=== PATIENT | female | born 1950 | race Caucasian/White ===

== ENCOUNTER 2017-07-02 12:41 | Outpatient (CLI) | payer MEDICARE, BC ==
[2017-07-02 13:26] LABS: Anion Gap 13 mmol/L (10-20); BUN (Urea Nitrogen) 21 mg/dL (9.8-20.1); Calc. Creatinine Clearance 0 mL/min (70-130); Calcium 9.4 mg/dL (7.8-10.44); Carbon Dioxide 24 mmol/L (23-31); Chloride 105 mmol/L (98-107); Estimated GFR-MDRD 67
--- NOTE | 2017-07-02 16:56 | NM ---
LASIX RENOGRAM 07/02/17 HISTORY: Hydronephrosis. Recurrent urinary tract infections. Congenital UPJ obstruction. Urge incontinence. RADIOPHARMACEUTICAL: 7.5 millicuries technetium 99m labeled MAG3, IV. MEDICATIONS: 33.1 mg of Lasix, intravenously administered 15 minutes prior to imaging. FINDINGS: Sequential posterior images of the bilateral kidneys is performed. There is a normal time activity c urve involving the left kidney with prompt uptake of radiotracer within the right kidney but delayed washout. Split renal function is 47.2% on the left and 52.8% on the right. The time to half max act ivity on the left is 6.1 minutes and on the right is 16.3 minutes. On the static images, there is in creased uptake of radiotracer predominantly within the left renal pelvis after approximately 50 yarelis ruthie of imaging. IMPRESSION: 1. Normal function and time activity curve involving the left kidney without hydronephrosis. 2. No complete obstruction involving the right kidney. While there is normal uptake, there is d elayed excretion of the radiotracer with prominent activity in the region of the right renal pelvis noted on the delayed images. On CT exam of 04/28/17, there wa a prominent extrarenal pelvis with only mild caliceal dilatation present. Extrarenal pelvis was also present on the left on that exam. 3. Split renal function is 47.2% on the left and 52.8% on the right. POS: [facility]
[2017-07-02] MEDS ORDERED: Furosemide 40 MG/4 ML VIAL ONE (17:14)
== END 2017-07-02 12:42 | disposition home or self-care (01) ==
LOC: NM 12:41
PROVIDERS: ATTEND Urology
DX: N39.0 Urinary tract infection, site not specified (principal); Q62.11 Congenital occlusion of ureteropelvic junction; N39.41 Urge incontinence; R31.29 Other microscopic hematuria
CPT/HCPCS: 78708; 80048; A4641; A9562; 36415; J1940

== ENCOUNTER 2017-07-12 08:58 | Outpatient (CLI) | payer MEDICARE, BC ==
--- NOTE | 2017-07-12 11:52 | RAD ---
VOIDING CYSTOURETHROGRAM: Date: 07/12/17 HISTORY: N39.0, recurrent UTI. Q62.11, UPJ obstruction, congenital. COMPARISON: Nuclear medicine scan dated 07/02/17, as well as CT abdomen/pelvis dated 04/28/17. FINDINGS: The patient was brought to the fluoroscopy suite. All questions were answered. Fund Accountant radiograph of the pelvis demonstrates mild levoscoliosis. Phleboliths in the pelvis. Bladder was catheterized. Retrograde 500 mL of contrast was instilled into the urinary bladder withou t complication. There is no reflux. There is a moderate post-void residual. IMPRESSION: 1. No evidence for reflux. 2. Moderate post-void residual. Fluoro Time: 0.7 minutes. Dose: 11.3 mGy*cm^2. POS: [facility]
[2017-07-12] MEDS ORDERED: ISOVUE-370 76%-LOCM 1 ML ONE (13:52)
== END 2017-07-12 08:59 | disposition home or self-care (01) ==
LOC: RAD 08:58
PROVIDERS: ATTEND Urology
DX: N39.41 Urge incontinence (principal); N39.0 Urinary tract infection, site not specified; N39.43 Post-void dribbling; Q62.11 Congenital occlusion of ureteropelvic junction
CPT/HCPCS: 51600; 74455

== ENCOUNTER 2017-08-03 09:09 | Outpatient (CLI) | payer MEDICARE, BC ==
[2017-08-03 09:43] LABS: Anion Gap 10 mmol/L (10-20); BUN (Urea Nitrogen) 19 mg/dL (9.8-20.1); Calc. Creatinine Clearance 0 mL/min (70-130); Calcium 9.3 mg/dL (7.8-10.44); Carbon Dioxide 29 mmol/L (23-31); Chloride 105 mmol/L (98-107); Estimated GFR-MDRD 65
--- NOTE | 2017-08-03 11:54 | CT ---
CTA OF THE ABDOMEN UTILIZING IV CONTRAST AND 3D REFORMATTED IMAGING: INDICATIONS: Right UPJ obstruction. COMPARISON: Prior CT of the abdomen and pelvis dated 04/28/2017. FINDINGS: The renal pelviectasis involving the right kidney is not as prominent as seen on the comparison CT. There is an extrarenal pelvis involving the left kidney. There is transition to a normal caliber pro ximal right ureter at the right UPJ without evidence of any crossing arterialized vessels. There is some mild vascular calcification seen adjacent to the celiac origin. The SMA is widely stroud nt. There are single renal arteries bilaterally that are widely patent. The alignment is widely pat ent. No aneurysmal dilatation is seen involving the abdominal aorta. The lung bases are clear. No arterial enhancing lesion is seen within the liver. There is some intrahepatic and extrahepatic b iliary ductal dilatation, likely related to post cholecystectomy state. The pancreas is within fermin l limits. The adrenal glands appear within normal limits. The spleen appears within normal limits o n this phase of contrast enhancement. No acute osseous abnormality is evident. IMPRESSION: 1. No visible crossing vessels seen near the ureteropelvic junction. Transition of the right kidney suggests extrinsic mass effect on the ureteropelvic junction, inducing ureteropelvic junction obstru ction. 2. There is an extra renal pelvis on the left. 3. The right renal pelvis also appears to be an extra renal pelvis. 4. There is no berto calyceal dilatation. The extent of the dilatation involving both renal collect ing systems, particularly on the right, on the comparison (04/28/2017) exam has improved. There was some slight obstructive physiology seen involving the right renal collecting system, on the compariso n nuclear renogram examination, likely reflecting at least mild presence of ureteropelvic junction ob struction on the right. 5. No hemodynamically significant stenosis or aneurysmal formation or dissection demonstrated. 6. Cholecystectomy. POS: [facility]
[2017-08-03] MEDS ORDERED: Iopamidol 370 76% 100 ML VIAL ONE (13:10)
== END 2017-08-03 09:10 | disposition home or self-care (01) ==
LOC: CT 09:09
PROVIDERS: ATTEND Urology
DX: Q62.11 Congenital occlusion of ureteropelvic junction (principal); Z90.49 Acquired absence of other specified parts of digestive tract
CPT/HCPCS: 36415; 74175; 80048

== ENCOUNTER 2017-11-16 08:43 | Outpatient (CLI) | payer MEDICARE, BC | END 2017-11-16 08:44 | disposition home or self-care (01) | LOC: BICMAMMO 08:43 | PROVIDERS: ATTEND Obstetrics & Gynecology | DX: Z12.31 Encounter for screening mammogram for malignant neoplasm of breast (principal); Z80.3 Family history of malignant neoplasm of breast | CPT/HCPCS: 77063; 77067 ==

== ENCOUNTER 2018-02-15 12:20 | Outpatient (CLI) | payer MEDICARE, BC ==
[2018-02-15] MEDS ORDERED: Furosemide 40 MG/4 ML VIAL ONE (14:50)
--- NOTE | 2018-02-16 10:30 | NM ---
LASIX RENOGRAM: DATE: 02/15/18. HISTORY: Congenital occlusion of ureteropelvic junction. COMPARISON: 07/02/17. RADIOPHARMACEUTICAL: 8.2 mCi Technetium 99m MAG-3, IV. MEDICATIONS: 34 mg of Lasix, IV, prior to scanning. COMPARISON: 07/02/17. FINDINGS: Sequential posterior imaging of the bilateral kidneys is performed. Again noted is a normal time act ivity curve involving the left kidney with prompt uptake and excretion of radiotracer. Thee is also prompt uptake of radiotracer by the right kidney with mild delay in washout compared to the left kidn ey. Time activity curves are similar to the prior exam. Again noted is prominent renal pelvis on th e right compared to the left on the washout images. Activity is seen within each ureter on the washo ut images. The split renal function on the left is 49.9% and on the right is 50.1%. The time of half-max activi ty on the left is 7.078 minutes and on the right is 14.2 minutes with time to max activity on the lef t of 2.1 minutes and on the right of 2.35 minutes. IMPRESSION: 1. Normal function and time activity curve involving the left kidney without evidence of hydronephro sis. 2. No evidence of obstruction on the right. Time activity curve is unchanged compared to the study on 07/02/17 with prominent activity in the region of the right renal pelvis noted on delayed images. As mentioned on the prior study, there is prominent extrarenal pelvis on the right noted on prior CT scan examination on 08/03/17. 3. Split renal function is 49.9% on the left and 50.1% on the right. POS: [facility]
== END 2018-02-15 12:21 | disposition home or self-care (01) ==
LOC: NM 12:20
PROVIDERS: ATTEND Urology
DX: Q62.11 Congenital occlusion of ureteropelvic junction (principal)
CPT/HCPCS: 78708; A4641; A9562; J1940

== ENCOUNTER 2018-11-21 10:29 | Outpatient (CLI) | payer MEDICARE, BC ==
--- NOTE | 2018-11-23 11:11 | MMO ---
Bilateral MAMMO Bilat Screen [facility]. CLINICAL HISTORY: Patient is 68 years old and is seen for screening. The patient has the following family history of breast cancer: maternal aunt, 70 and 75 years and maternal aunt, 70 and 75 years. The patient has no personal history of cancer. The patient has a history of right Excisional Biopsy in 1995 - Benign. VIEWS: The views performed were: bilateral craniocaudal with tomosynthesis and bilateral mediolateral oblique with tomosynthesis. FILMS COMPARED: The present examination has been compared to prior imaging studies performed at [facility] on 12/25/1996, 12/17/1997, 07/25/2002, 07/26/2003, 07/28/2004, 08/01/2004, 08/07/2005, 08/09/2006, 09/22/2007, 12/05/2008, 04/30/2010, 05/19/2011, 06/07/2012, 07/14/2013, 09/26/2014, 10/31/2015, 11/12/2016 and 11/16/2017. MAMMOGRAM FINDINGS: The breasts are heterogeneously dense, which could obscure a lesion on mammography. There are no suspicious masses, suspicious calcifications, or new areas of architectural distortion. IMPRESSION: THERE IS NO MAMMOGRAPHIC EVIDENCE OF MALIGNANCY. A ROUTINE FOLLOW-UP MAMMOGRAM IN 1 YEAR IS RECOMMENDED. THE RESULTS OF THIS EXAM WERE SENT TO THE PATIENT. ACR BI-RADS Category 1 - Negative MAMMOGRAPHY NOTE: 1. A negative mammogram report should not delay a biopsy if a dominant of clinically suspicious mass is present. 2. Approximately 10% to 15% of breast cancers are not detected by mammography. 3. Adenosis and dense breasts may obscure an underlying neoplasm.
== END 2018-11-21 10:30 | disposition home or self-care (01) ==
LOC: BICMAMMO 10:29
PROVIDERS: ATTEND Obstetrics & Gynecology
DX: Z12.31 Encounter for screening mammogram for malignant neoplasm of breast (principal); Z80.3 Family history of malignant neoplasm of breast
CPT/HCPCS: 77063; 77067

== ENCOUNTER 2019-08-25 13:23 | Outpatient (CLI) | payer MEDICARE, BC ==
[2019-08-25] MEDS ORDERED: Furosemide 40 MG/4 ML VIAL ONE (15:01)
--- NOTE | 2019-08-25 16:36 | NM ---
RADIONUCLIDE DIURETIC RENOGRAPHY: 08/25/19 HISTORY: Congenital occlusion of ureteropelvic junction. History of UTIs. RADIOPHARMACEUTICAL: 8.7 millicuries technetium 99mm-MAG3 intravenously. DIURETIC: 33 mg IV Lasix administered 15 minutes prior to the injection of the radiopharmaceutical. Juarez rohan ter was in place during imaging. COMPARISON: 02/15/18. FINDINGS: There is good flow to both kidneys and normal tracer uptake by the kidneys on either side. There is n ormal tracer excretion by the kidneys into the ureters and urinary bladder. Downsloping renogram curv es are present. There is mild retention of tracer material in the right renal pelvis compared to the left on the lateral images. The differential function measures 54% on the right and 46% on the left. IMPRESSION: No evidence of high grade obstruction. POS: [facility]
== END 2019-08-25 13:24 | disposition home or self-care (01) ==
LOC: NM 13:23
PROVIDERS: ATTEND Urology
DX: Q62.11 Congenital occlusion of ureteropelvic junction (principal)
CPT/HCPCS: 78708; 80048; 81001; 87077; 87086; 87186; A4641; A9562; 36415; J1940

== ENCOUNTER 2020-01-04 09:47 | Outpatient (CLI) | payer MEDICARE, BC ==
--- NOTE | 2020-01-04 10:27 | MMO ---
Bilateral MAMMO Bilat Screen [facility]. CLINICAL HISTORY: Patient is 69 years old and is seen for screening. The patient has the following family history of breast cancer: maternal aunt, 70 and 75 years and maternal aunt, 70 and 75 years. The patient has no personal history of cancer. The patient has a history of right Excisional Biopsy in 1995 - Benign. VIEWS: The views performed were: bilateral craniocaudal with tomosynthesis and bilateral mediolateral oblique with tomosynthesis. FILMS COMPARED: The present examination has been compared to prior imaging studies performed at [facility] on 11/12/2016, 11/16/2017 and 11/21/2018. This study has been interpreted with the assistance of computer-aided detection. MAMMOGRAM FINDINGS: The breasts are heterogeneously dense, which could obscure a lesion on mammography. There are stable benign appearing calcifications seen in both breasts. There are also vascular calcifications. There are no suspicious masses, suspicious calcifications, or new areas of architectural distortion. IMPRESSION: THERE IS NO MAMMOGRAPHIC EVIDENCE OF MALIGNANCY. A ROUTINE FOLLOW-UP MAMMOGRAM IN 1 YEAR IS RECOMMENDED. THE RESULTS OF THIS EXAM WERE SENT TO THE PATIENT. ACR BI-RADS Category 2 - Benign finding MAMMOGRAPHY NOTE: 1. A negative mammogram report should not delay a biopsy if a dominant of clinically suspicious mass is present. 2. Approximately 10% to 15% of breast cancers are not detected by mammography. 3. Adenosis and dense breasts may obscure an underlying neoplasm. Reported by: PUJA RICHMOND MD Electonically Signed: [id number]
== END 2020-01-04 09:48 | disposition home or self-care (01) ==
LOC: BICMAMMO 09:47
PROVIDERS: ATTEND Obstetrics & Gynecology
DX: Z12.31 Encounter for screening mammogram for malignant neoplasm of breast (principal); Z80.3 Family history of malignant neoplasm of breast; Z91.89 Other specified personal risk factors, not elsewhere classified
CPT/HCPCS: 77063; 77067

== ENCOUNTER 2020-09-25 14:33 | Outpatient (CLI) | payer MEDICARE, BC ==
--- NOTE | 2020-09-26 16:47 | MRI ---
MRI OF LEFT KNEE PERFORMED WITOUT CONTRAST ENHANCEMENT: Comparison: 08-23-2002 History: Medial knee pain and stiffness FINDINGS: The ACL graft is intact. There is some mucoid degeneration to the PCL which is intact. The lateral meniscus is normal in shape and appearance. There is a tear involving the posterior horn and body region of the medial meniscus. This begins as more of a free edge, with more regularly orien florin tear in the posterior horn. It has a horizontal component extending into the body region and in a ddition, the free edge of the body of the meniscus is truncated. There is minimal medial subluxation. Medial collateral ligament is thickened related to an old injury. The lateral collateral ligament is normal in appearance. Iliotibial band region is unremarkable. Patellar articular cartilage shows some articular cartilage thinning of the medial facet. The medial and lateral patellar retinaculum and quadriceps and patellar tendons are unremarkable given the post- op changes. IMPRESSION: 1. Posterior horn and body medial meniscal tear as described above. 2. Intact ACL graft. 3. Some articular cartilage loss in the medial facet of the patellar and also some articular cartilag e loss along the more inferior margin of the trochanteric groove. POS: [facility]
== END 2020-09-25 14:34 | disposition home or self-care (01) ==
LOC: BICMRI 14:33
PROVIDERS: ATTEND Orthopaedic Surgery
DX: S83.242A Other tear of medial meniscus, current injury, left knee, initial encounter (principal); M17.12 Unilateral primary osteoarthritis, left knee; M23.92 Unspecified internal derangement of left knee

== ENCOUNTER 2020-10-25 10:19 | Outpatient (CLI) | payer MEDICARE, BC ==
[2020-10-25 12:21] LABS: #Eosinphils 0.1 10x3/uL (0.0-0.5); #Monocytes 0.5 10x3/uL (0.0-1.1); #Neutrophils 2.4 10x3/uL (1.5-8.4); %Basophils 0.7 % (0.0-2.0); %Eosinophils 2.3 % (0.0-6.0); %Lymphocytes 31.8 % (18.0-47.0); %Monocytes 10.8 % (0.0-10.0); %Neutrophils 54.2 % (40.0-75.0); Hemoglobin 13.5 g/dL (12.0-15.5); Mean Corpuscular HGB CONC 31.9 g/dL (32.0-36.0); Mean Corpuscular Hemoglobin 27.2 pg (27.0-33.0); Mean Corpuscular Volume 85.3 fl (81.6-98.3); Mean Platelet Volume 9.6 fl (7.4-10.4); Platelet Count 242 10x3/uL (150-450); Red Blood Cell (RBC) Count 4.96 10x6/uL (3.90-5.03); White Blood Cell (WBC) Count 4.4 10x3/uL (3.5-10.5)
[2020-10-25 12:37] LABS: Anion Gap 12 mmol/L (10-20); BUN (Urea Nitrogen) 17 mg/dL (9.8-20.1); Calc. Creatinine Clearance 0 mL/min (70-130); Calcium 9.8 mg/dL (7.8-10.44); Carbon Dioxide 30 mmol/L (23-31); Chloride 102 mmol/L (98-107); Glucose 95 mg/dL (83-110); Potassium 4.7 mmol/L (3.5-5.1); Sodium 139 mmol/L (136-145)
[2020-10-25 21:53] LABS: SARS-CoV-2 PCR by NAA Not Detected (NotDetected)
== END 2020-10-25 10:20 | disposition home or self-care (01) ==
LOC: LABBT 10:19
PROVIDERS: ATTEND Orthopaedic Surgery
DX: Z01.818 Encounter for other preprocedural examination (principal); Z20.822 Contact with and (suspected) exposure to COVID-19
CPT/HCPCS: 80048; 85025; 93005; U0003; U0005; 87635; 93010

== ENCOUNTER 2020-10-30 08:41 | Day surgery (SDC) | payer MEDICARE, BC ==
[2020-10-29 08:52] VITALS: BMI 26.2
[2020-10-30] MEDS ORDERED: PROPOFOL 200 MG/20 ML VIAL ONE (09:04)
[2020-10-30] MEDS ORDERED: Ketorolac Tromethamine 30 MG/ML VIAL ONE (09:04)
[2020-10-30] MEDS ORDERED: Ondansetron PF 4 MG/2 ML Vial ONE (09:04)
[2020-10-30] MEDS ORDERED: Lidocaine 2% w/Epinephrine 1:200K 20 ML VIAL ONE (09:04)
[2020-10-30] MEDS ORDERED: Dexamethasone 20 MG/5 ML VIAL ONE (09:04)
[2020-10-30] MEDS ORDERED: Lidocaine 1% PF 5 ML VIAL ONE (09:04)
[2020-10-30] MEDS ORDERED: Bupivacaine HCl 0.5%/Epinephrine 1:200,000/PF 30 ml Vial ONE (09:04)
[2020-10-30] MEDS ORDERED: PROPOFOL 20 ML ONE (09:57)
[2020-10-30] MEDS ORDERED: Fentanyl 100 MCG/2 ML VIAL ONE (10:50)
== END 2020-10-30 14:00 | disposition home or self-care (01) ==
LOC: SDC 08:41
PROVIDERS: ATTEND Orthopaedic Surgery
PROC: 0SBD4ZZ Excision of Left Knee Joint, Percutaneous Endoscopic Approach (ICD-10-PCS; principal; 2020-10-30)
DX: M23.222 Derangement of posterior horn of medial meniscus due to old tear or injury, left knee (principal); M94.262 Chondromalacia, left knee; M17.12 Unilateral primary osteoarthritis, left knee; K21.9 Gastro-esophageal reflux disease without esophagitis; Z79.899 Other long term (current) drug therapy; Z88.5 Allergy status to narcotic agent
CPT/HCPCS: J0690; J1100; J1885; J2405; J2704; J3010

== ENCOUNTER 2021-01-07 10:31 | Outpatient (CLI) | payer MEDICARE, BC | END 2021-01-07 10:32 | disposition home or self-care (01) | LOC: BICMAMMO 10:31 | PROVIDERS: ATTEND Obstetrics & Gynecology | DX: Z12.31 Encounter for screening mammogram for malignant neoplasm of breast (principal); Z80.3 Family history of malignant neoplasm of breast; Z91.89 Other specified personal risk factors, not elsewhere classified | CPT/HCPCS: 77063; 77067 ==

== ENCOUNTER 2022-01-20 10:57 | Outpatient (CLI) | payer MEDICARE, BC | END 2022-01-20 10:58 | disposition home or self-care (01) | LOC: BICMAMMO 10:57 | PROVIDERS: ATTEND Obstetrics & Gynecology | DX: Z12.31 Encounter for screening mammogram for malignant neoplasm of breast (principal); Z91.89 Other specified personal risk factors, not elsewhere classified; Z80.3 Family history of malignant neoplasm of breast | CPT/HCPCS: 77063; 77067 ==

== ENCOUNTER 2022-02-05 11:00 | Outpatient (CLI) | payer MEDICARE, BC | END 2022-02-05 11:01 | disposition home or self-care (01) | LOC: NM 11:00 | PROVIDERS: ATTEND Urology | DX: Q62.11 Congenital occlusion of ureteropelvic junction (principal); N39.0 Urinary tract infection, site not specified; N39.41 Urge incontinence; R35.0 Frequency of micturition | CPT/HCPCS: 78708; A4641; A9540 ==

== ENCOUNTER 2022-03-17 08:43 | Outpatient (CLI) | payer MEDICARE, BC | END 2022-03-17 08:44 | disposition home or self-care (01) | LOC: BICMAMMO 08:43 | PROVIDERS: ATTEND Obstetrics & Gynecology | DX: Z13.820 Encounter for screening for osteoporosis (principal); M85.851 Other specified disorders of bone density and structure, right thigh; M85.852 Other specified disorders of bone density and structure, left thigh | CPT/HCPCS: 77080 ==

== ENCOUNTER 2023-03-19 07:32 | Inpatient (IN) | payer MEDICARE, BC ==
[2023-03-19] MEDS ORDERED: Ondansetron PF 4 MG/2 ML Vial IVP PRN (10:22)
[2023-03-19] MEDS ORDERED: Acetaminophen 325 MG TAB PO PRN (10:22)
[2023-03-19] MEDS ORDERED: Piperacillin/Tazobactam 3.375 GM in Sodium Chloride 0.9% 100 ML IVPB SCH (10:30)
[2023-03-19] MEDS ORDERED: MD-Gastroview 120 ML BOT ONE (11:37)
[2023-03-19] MEDS: Sodium Chloride 0.9% 1,000 ML IV SCH (13:33)
[2023-03-19] MEDS ORDERED: Piperacillin/Tazobactam 4.5 GM in Sodium Chloride 0.9% 100 ML IVPB SCH (14:00)
[2023-03-19 15:35] VITALS: BMI 25.7
[2023-03-19] MEDS: Piperacillin/Tazobactam 3.375 GM in Sodium Chloride 0.9% 100 ML IVPB SCH (18:34)
[2023-03-19] MEDS: Trospium 20 MG TAB PO SCH (20:51)
[2023-03-19] MEDS: Famotidine/PF 20 mg/2ml Vial SLOW IVP SCH (20:52)
[2023-03-20] MEDS: Sodium Chloride 0.9% 1,000 ML IV SCH ×2 (00:18→15:00)
[2023-03-20] MEDS: Piperacillin/Tazobactam 3.375 GM in Sodium Chloride 0.9% 100 ML IVPB SCH ×3 (02:26→18:27)
[2023-03-20 05:44] LABS: #Monocytes 1.1 thou/uL (0.11-0.59); #Neutrophils 9.6 thou/uL (1.40-6.50); %Basophils 0.3 % (0.0-1.0); %Eosinophils 0.2 % (0.0-10.0); %Lymphocytes 11.4 % (21.0-51.0); %Monocytes 9.2 % (0.0-10.0); %Neutrophils 78.4 % (42.0-75.0); Hemoglobin 14.8 g/dL (12.0-16.0); Mean Corpuscular HGB CONC 32.6 g/dL (32.0-36.0); Mean Corpuscular Hemoglobin 28.1 pg (27.0-31.0); Mean Corpuscular Volume 86.1 fl (78.0-98.0); Mean Platelet Volume 10.1 fL (7.4-10.4); Platelet Count 207 10x3/uL (130-400); Red Blood Cell (RBC) Count 5.27 mill/uL (4.20-5.40); White Blood Cell (WBC) Count 12.2 10x3/uL (4.8-10.8)
[2023-03-20 06:27] LABS: Anion Gap 14 mmol/L (10-20); BUN (Urea Nitrogen) 18 mg/dL (9.8-20.1); Calc. Creatinine Clearance 68 mL/min (70-130); Calcium 8.9 mg/dL (7.8-10.44); Carbon Dioxide 23 mmol/L (23-31); Chloride 106 mmol/L (98-107); Estimated GFR 80; Glucose 99 mg/dL (83-110); Potassium 4.1 mmol/L (3.5-5.1); Sodium 139 mmol/L (136-145)
[2023-03-20] MEDS: Trospium 20 MG TAB PO SCH ×2 (08:37→20:34)
[2023-03-20] MEDS: Famotidine/PF 20 mg/2ml Vial SLOW IVP SCH ×2 (08:49→20:34)
[2023-03-20] MEDS ORDERED: Metoclopramide HCl 10 MG/2 ML VIAL IVP SCH (09:00)
[2023-03-20] MEDS: Metoclopramide HCl 10 MG/2 ML VIAL IVP SCH ×2 (18:27→20:35)
[2023-03-21] MEDS: Piperacillin/Tazobactam 3.375 GM in Sodium Chloride 0.9% 100 ML IVPB SCH ×3 (03:16→17:50)
[2023-03-21] MEDS: Sodium Chloride 0.9% 1,000 ML IV SCH ×2 (03:16→17:50)
[2023-03-21 05:22] LABS: Hemoglobin 12.9 g/dL (12.0-16.0); Mean Corpuscular HGB CONC 32.4 g/dL (32.0-36.0); Mean Corpuscular Hemoglobin 28.2 pg (27.0-31.0); Mean Corpuscular Volume 87.1 fl (78.0-98.0); Platelet Count 185 10x3/uL (130-400); RBC Distribution Width 12.9 % (11.5-14.5); Red Blood Cell (RBC) Count 4.57 mill/uL (4.20-5.40); White Blood Cell (WBC) Count 7.2 10x3/uL (4.8-10.8)
[2023-03-21 05:27] LABS: Hemoglobin A1c 5.1 % (4.0-6.0)
[2023-03-21] MEDS: Metoclopramide HCl 10 MG/2 ML VIAL IVP SCH ×3 (05:46→21:44)
[2023-03-21 05:52] LABS: Anion Gap 10 mmol/L (10-20); BUN (Urea Nitrogen) 20 mg/dL (9.8-20.1); Calc. Creatinine Clearance 69 mL/min (70-130); Calcium 8.6 mg/dL (7.8-10.44); Carbon Dioxide 26 mmol/L (23-31); Chloride 106 mmol/L (98-107); Estimated GFR 81; Glucose 79 mg/dL (83-110); Sodium 138 mmol/L (136-145)
[2023-03-21] MEDS: Famotidine/PF 20 mg/2ml Vial SLOW IVP SCH ×2 (08:53→21:44)
[2023-03-21] MEDS: Trospium 20 MG TAB PO SCH ×2 (08:54→21:44)
[2023-03-22] MEDS: Piperacillin/Tazobactam 3.375 GM in Sodium Chloride 0.9% 100 ML IVPB SCH ×2 (02:58→08:34)
[2023-03-22] MEDS: Sodium Chloride 0.9% 1,000 ML IV SCH (03:00)
[2023-03-22] MEDS: Metoclopramide HCl 10 MG/2 ML VIAL IVP SCH ×2 (05:20→14:01)
[2023-03-22] MEDS: Trospium 20 MG TAB PO SCH (08:35)
[2023-03-22] MEDS: Famotidine/PF 20 mg/2ml Vial SLOW IVP SCH (08:35)
[2023-03-22 15:23] VITALS: BP 159/71; TEMP 98
== END 2023-03-22 18:33 | disposition home or self-care (01) | DRG 389 ==
LOC: SURG A 07:32 → INTOOBSV 07:32 → OBSVTOIN 03-21 13:43
PROVIDERS: ADMIT Internal Medicine; ATTEND Internal Medicine
PROC: 0DH67UZ Insertion of Feeding Device into Stomach, Via Natural or Artificial Opening (ICD-10-PCS; principal; 2023-03-19)
PROC: 3E0G76Z Introduction of Nutritional Substance into Upper GI, Via Natural or Artificial Opening (ICD-10-PCS; 2023-03-19)
DX: K56.600 Partial intestinal obstruction, unspecified as to cause (principal); N39.0 Urinary tract infection, site not specified; K31.84 Gastroparesis; B96.20 Unspecified Escherichia coli [E. coli] as the cause of diseases classified elsewhere; Z88.8 Allergy status to other drugs, medicaments and biological substances; Z79.899 Other long term (current) drug therapy; Z98.890 Other specified postprocedural states; Z90.49 Acquired absence of other specified parts of digestive tract; Z90.710 Acquired absence of both cervix and uterus
CPT/HCPCS: 36415; 74018; 74250; 80048; 83036; 85025; 85027; 96365; 96366; 96372; 96375; 96376; G0378; J1650; J2543; J2765; J3490; J7050; Q9963; S0028

== ENCOUNTER 2023-03-26 09:56 | Observation (INO) | payer MEDICARE, BC ==
[2023-03-26] MEDS ORDERED: Iopamidol-370 76% 500 ML MDV (1 ML CHARGE) ONE (10:15)
[2023-03-26 10:58] LABS: Bacteria/HPF None Seen HPF (None Seen); Bilirubin Negative (Negative); Blood, Urine Negative (Negative); CAUTI Indications for Culture Pelvic or flank pain; Clarity Clear (Clear); Glucose, Urine (Dipstick) Normal (Negative); Ketone, Urine 60 mg/dL (Negative); Leukocyte Negative Leu/uL (Negative); Nitrite Negative (Negative); Protein, Urine (Dipstick) 20 mg/dL (Neg-Trace); RBC/HPF 0-3 HPF (0-3); Specific Gravity, Urine 1.026 (1.002-1.036); Squamous Epithelial 0-3 HPF (0-3); Urobilinogen Normal mg/dL (Less than 2); WBC/HPF 0-3 HPF (0-3); pH, Urine 5.5 (5.0-9.0)
[2023-03-26 11:02] LABS: #Neutrophils 8.6 thou/uL (1.40-6.50); %Basophils 0.4 % (0.0-1.0); %Eosinophils 0.3 % (0.0-10.0); %Lymphocytes 13.9 % (21.0-51.0); %Monocytes 8.9 % (0.0-10.0); %Neutrophils 76.2 % (42.0-75.0); Hematocrit 48.5 % (36.0-47.0); Hemoglobin 16.3 g/dL (12.0-16.0); Mean Corpuscular HGB CONC 33.6 g/dL (32.0-36.0); Mean Corpuscular Hemoglobin 27.7 pg (27.0-31.0); Mean Corpuscular Volume 82.5 fl (78.0-98.0); Platelet Count 340 10x3/uL (130-400); RBC Distribution Width 12.6 % (11.5-14.5); Red Blood Cell (RBC) Count 5.88 mill/uL (4.20-5.40); White Blood Cell (WBC) Count 11.3 10x3/uL (4.8-10.8)
[2023-03-26 11:04] LABS: Urine Culture Reflex No No
[2023-03-26] MEDS ORDERED: Metoclopramide HCl 10 MG/2 ML VIAL ONE (11:26)
[2023-03-26] MEDS ORDERED: diphenhydrAMINE 50 MG/ML VIAL ONE (11:26)
[2023-03-26 11:27] LABS: ALT (SGPT) 142 U/L (8-55); AST (SGOT) 65 U/L (5-34); Albumin 4.9 g/dL (3.4-4.8); Alkaline Phosphatase 66 U/L (40-110); Anion Gap 19 mmol/L (10-20); BUN (Urea Nitrogen) 34 mg/dL (9.8-20.1); Bilirubin, Total 0.7 mg/dL (0.2-1.2); Calc. Creatinine Clearance 0 mL/min (70-130); Calcium 10.1 mg/dL (7.8-10.44); Carbon Dioxide 26 mmol/L (23-31); Estimated GFR 73; Globulin 3.6 g/dL (2.4-3.5); Glucose 124 mg/dL (83-110); Lipase 40 U/L (8-78); Potassium 3.2 mmol/L (3.5-5.1); Protein, Total 8.5 g/dL (5.8-8.1)
[2023-03-26 11:52] LABS: Chloride 96 mmol/L (98-107); Sodium 138 mmol/L (136-145)
[2023-03-26] MEDS ORDERED: HYDROmorphone 2 MG/ML VIAL ONE (12:07)
[2023-03-26] MEDS ORDERED: Fentanyl 250 MCG/5 ML VIAL ONE (12:07)
[2023-03-26] MEDS ORDERED: SUGAMMADEX SODIUM 200 MG/2 ML VIAL ONE ×2 (12:08→14:57)
[2023-03-26] MEDS ORDERED: Bupivacaine HCl 0.5%/Epinephrine 1:200,000/PF 30 ml Vial ONE (12:29)
[2023-03-26] MEDS ORDERED: Ketorolac Tromethamine 30 MG/ML VIAL ONE (12:30)
[2023-03-26] MEDS ORDERED: Meropenem 1 GM in Sodium Chloride 0.9% 100 ML IVPB SCH (12:45)
[2023-03-26] MEDS ORDERED: Sodium Chloride 0.9% 1,000 ML IV SCH (12:45)
[2023-03-26] MEDS ORDERED: ePHEDrine Sulfate 50 MG/10 ML VIAL ONE (13:58)
[2023-03-26] MEDS ORDERED: Lidocaine 1% PF 5 ML VIAL ONE (13:58)
[2023-03-26] MEDS ORDERED: Rocuronium Bromide 10 MG/ML (10ML VIAL) ONE (13:58)
[2023-03-26] MEDS ORDERED: Succinylcholine 200 MG/10 ml SYRINGE FS ONE (13:58)
[2023-03-26] MEDS ORDERED: PROPOFOL 200 MG/20 ML VIAL ONE (13:58)
[2023-03-26] MEDS ORDERED: Ondansetron PF 4 MG/2 ML Vial ONE (13:58)
[2023-03-26] MEDS ORDERED: HYDROmorphone 2 MG/ML VIAL SLOW IVP PRN (14:41)
[2023-03-26] MEDS ORDERED: Ondansetron HCl/PF 4 MG/2 ML Vial IVP PRN (14:41)
[2023-03-26] MEDS ORDERED: Promethazine HCl 25 MG/ML VIAL IM PRN (14:41)
[2023-03-26] MEDS ORDERED: Morphine 2 MG/ML VIAL SLOW IVP PRN (15:06)
[2023-03-26] MEDS ORDERED: TETANUS, DIPHTHERIA TOX,ADULT (TDVAX) 0.5 ML VIAL IM ONE (15:06)
[2023-03-26] MEDS ORDERED: traMADol HCl 50 MG TAB PO PRN (15:06)
[2023-03-26] MEDS ORDERED: Ondansetron ODT 4 MG TAB PO PRN (15:06)
[2023-03-26] MEDS ORDERED: hydrALAZINE 20 MG/ML VIAL SLOW IVP PRN (15:06)
[2023-03-26] MEDS ORDERED: Ondansetron PF 4 MG/2 ML Vial IVP PRN (15:06)
[2023-03-26] MEDS ORDERED: Morphine 4 MG/ML VIAL SLOW IVP PRN (15:06)
[2023-03-26] MEDS: Potassium Chloride 20 MEQ in Lactated Ringer's 1,000 ML IV SCH ×2 (18:08→23:14)
[2023-03-26] MEDS: Acetaminophen 500 MG TAB PO SCH ×3 (18:09→23:32)
[2023-03-26] MEDS: Famotidine 20 MG TAB PO SCH (20:05)
[2023-03-26] MEDS: Trospium 20 MG TAB PO SCH (20:05)
[2023-03-26] MEDS ORDERED: Potassium Chloride 20 MEQ in Premix Bag 1 BAG IVPB SCH (22:00)
[2023-03-26] MEDS: Potassium Chloride 20 MEQ in Premix Bag 1 BAG IVPB SCH (23:13)
[2023-03-27 00:56] VITALS: BMI 24.4
[2023-03-27] MEDS: Potassium Chloride 20 MEQ in Premix Bag 1 BAG IVPB SCH (02:02)
[2023-03-27] MEDS: Acetaminophen 500 MG TAB PO SCH ×2 (05:15→12:35)
[2023-03-27] MEDS: Potassium Chloride 20 MEQ in Lactated Ringer's 1,000 ML IV SCH ×2 (05:15→12:35)
[2023-03-27 05:18] LABS: #Eosinphils 0.2 thou/uL (0.0-0.7); #Monocytes 0.7 thou/uL (0.11-0.59); #Neutrophils 5.6 thou/uL (1.40-6.50); %Basophils 0.5 % (0.0-1.0); %Lymphocytes 18.2 % (21.0-51.0); %Monocytes 8.6 % (0.0-10.0); %Neutrophils 70.3 % (42.0-75.0); Mean Corpuscular HGB CONC 32.9 g/dL (32.0-36.0); Mean Corpuscular Hemoglobin 28.2 pg (27.0-31.0); Mean Platelet Volume 10.1 fL (7.4-10.4); RBC Distribution Width 12.9 % (11.5-14.5); Red Blood Cell (RBC) Count 4.61 mill/uL (4.20-5.40); White Blood Cell (WBC) Count 7.9 10x3/uL (4.8-10.8)
[2023-03-27 05:20] LABS: Hematocrit 39.5 % (36.0-47.0); Mean Corpuscular Volume 85.7 fl (78.0-98.0); Platelet Count 236 10x3/uL (130-400)
[2023-03-27 05:32] LABS: Phosphorus 1.7 mg/dL (2.3-4.7)
[2023-03-27 06:11] LABS: Anion Gap 10 mmol/L (10-20); BUN (Urea Nitrogen) 14 mg/dL (9.8-20.1); Calc. Creatinine Clearance 80 mL/min (70-130); Carbon Dioxide 27 mmol/L (23-31); Chloride 103 mmol/L (98-107); Estimated GFR 94; Glucose 80 mg/dL (83-110); Magnesium 1.8 mg/dL (1.6-2.6); Potassium 3.5 mmol/L (3.5-5.1); Sodium 136 mmol/L (136-145)
[2023-03-27 08:37] VITALS: BP 122/64; TEMP 98.3
[2023-03-27] MEDS ORDERED: Turmeric Root Extract [Turmeric] 500 MG Capsule PO SCH (09:00)
[2023-03-27] MEDS ORDERED: Multivit, Therapeutic 1 TAB PO SCH (09:00)
[2023-03-27] MEDS ORDERED: Floranex 1 GM Packet PO SCH (09:00)
[2023-03-27] MEDS: Trospium 20 MG TAB PO SCH (10:00)
[2023-03-27] MEDS: Famotidine 20 MG TAB PO SCH (10:01)
== END 2023-03-27 12:34 | disposition home or self-care (01) ==
LOC: ERS 09:56 → SDC 13:03 → SURG B 16:54
PROVIDERS: ADMIT Specialist; ATTEND Specialist
PROC: 0DNU4ZZ Release Omentum, Percutaneous Endoscopic Approach (ICD-10-PCS; principal; 2023-03-26)
DX: K56.609 Unspecified intestinal obstruction, unspecified as to partial versus complete obstruction (principal); E86.0 Dehydration; Z88.6 Allergy status to analgesic agent; Z90.710 Acquired absence of both cervix and uterus
CPT/HCPCS: 36415; 74177; 80048; 80053; 81001; 83605; 83690; 83735; 84100; 85025; 93005; 96361; 96365; 96375; J1170; J1200; J1650; J1885; J2185; J2405; J2704; J2765; J3010; J3480; J3490; J7050; J7120; Q9967

== ENCOUNTER 2023-04-09 09:45 | Outpatient (CLI) | payer MEDICARE, BC | END 2023-04-09 09:46 | disposition home or self-care (01) | LOC: BICMAMMO 09:45 | PROVIDERS: ATTEND Family Medicine | DX: Z12.31 Encounter for screening mammogram for malignant neoplasm of breast (principal); Z80.3 Family history of malignant neoplasm of breast; Z91.89 Other specified personal risk factors, not elsewhere classified | CPT/HCPCS: 77063; 77067 ==

== ENCOUNTER 2023-06-08 08:48 | Outpatient (CLI) | payer MEDICARE, BC | END 2023-06-08 08:49 | disposition home or self-care (01) | LOC: BICMRI 08:48 | PROVIDERS: ATTEND Orthopaedic Surgery | DX: M75.102 Unspecified rotator cuff tear or rupture of left shoulder, not specified as traumatic (principal); S43.432A Superior glenoid labrum lesion of left shoulder, initial encounter; M94.212 Chondromalacia, left shoulder; M19.012 Primary osteoarthritis, left shoulder; M67.812 Other specified disorders of synovium, left shoulder ==

== ENCOUNTER 2023-09-20 10:21 | Outpatient (CLI) | payer MEDICARE, BC ==
[2023-09-20 11:37] LABS: #Eosinphils 0.1 10x3/uL (0.0-0.5); #Monocytes 0.5 10x3/uL (0.0-1.1); #Neutrophils 2.6 10x3/uL (1.5-8.4); %Basophils 0.6 % (0.0-2.0); %Eosinophils 2.6 % (0.0-6.0); %Lymphocytes 34.7 % (18.0-47.0); %Monocytes 9.9 % (0.0-10.0); %Neutrophils 51.8 % (40.0-75.0); Hematocrit 42.3 % (34.9-44.5); Hemoglobin 14.1 g/dL (12.0-15.5); Mean Corpuscular HGB CONC 33.3 g/dL (32.0-36.0); Mean Corpuscular Hemoglobin 28.3 pg (27.0-33.0); Mean Corpuscular Volume 84.9 fl (81.6-98.3); Mean Platelet Volume 9.8 fl (7.4-10.4); Platelet Count 192 10x3/uL (150-450); Red Blood Cell (RBC) Count 4.98 10x6/uL (3.90-5.03); White Blood Cell (WBC) Count 4.9 10x3/uL (3.5-10.5)
[2023-09-20 11:46] LABS: Anion Gap 10 mmol/L (10-20); BUN (Urea Nitrogen) 21 mg/dL (9.8-20.1); Calc. Creatinine Clearance 0 mL/min (70-130); Calcium 9.5 mg/dL (7.8-10.44); Carbon Dioxide 28 mmol/L (23-31); Chloride 104 mmol/L (98-107); Estimated GFR 69; Glucose 104 mg/dL (83-110); Potassium 4.3 mmol/L (3.5-5.1); Sodium 138 mmol/L (136-145)
== END 2023-09-20 10:22 | disposition home or self-care (01) ==
LOC: LABBT 10:21
PROVIDERS: ATTEND Orthopaedic Surgery
DX: Z01.818 Encounter for other preprocedural examination (principal); S43.432A Superior glenoid labrum lesion of left shoulder, initial encounter; M75.112 Incomplete rotator cuff tear or rupture of left shoulder, not specified as traumatic; M24.012 Loose body in left shoulder
CPT/HCPCS: 80048; 85025; 93005; 93010

== ENCOUNTER 2023-09-24 08:48 | Day surgery (SDC) | payer MEDICARE, BC ==
[2023-09-20 11:11] VITALS: BMI 24.6
[2023-09-24] MEDS ORDERED: Ropivacaine 0.5% HCl/PF (150 MG/30 ML VIAL) ONE (09:57)
[2023-09-24] MEDS ORDERED: Midazolam HCl 2 mg/2 ml Vial ONE (09:57)
[2023-09-24] MEDS ORDERED: fentaNYL 50 mcg/mL 1 mL Vial ONE (09:57)
[2023-09-24] MEDS ORDERED: Ropivacaine 0.2% HCl/PF 20 ML ONE (09:57)
[2023-09-24] MEDS ORDERED: fentaNYL 50 mcg/mL 1 mL Vial SLOW IVP PRN (10:29)
[2023-09-24] MEDS ORDERED: Ropivacaine 0.2% 550 ML 550 ML NERVE BLCK SCH (10:30)
[2023-09-24] MEDS ORDERED: Ondansetron PF 4 MG/2 ML Vial IVP PRN (10:30)
[2023-09-24] MEDS ORDERED: HYDROcodone/Acetaminophen 10/325 mg Tablet PO PRN ×2 (10:30)
[2023-09-24] MEDS ORDERED: traMADol HCl 50 MG TAB PO PRN ×2 (10:30)
[2023-09-24] MEDS ORDERED: Promethazine HCl 25 MG/ML VIAL IM PRN (10:30)
[2023-09-24] MEDS ORDERED: Zolpidem Tartrate 5 MG TAB PO PRN (10:30)
[2023-09-24] MEDS ORDERED: PROPOFOL 20 ML ONE (10:51)
[2023-09-24] MEDS ORDERED: fentaNYL PF 100 MCG/2 ML SYRINGE ONE (10:51)
[2023-09-24] MEDS ORDERED: Rocuronium Bromide 10 MG/ML (10ML VIAL) ONE (10:52)
[2023-09-24] MEDS ORDERED: Lidocaine 1% PF 5 ML VIAL ONE (10:52)
[2023-09-24] MEDS ORDERED: CEFAZOLIN 2 GM VIAL ONE (11:37)
[2023-09-24] MEDS ORDERED: Sodium Chloride 0.9% 100 ML ONE (11:37)
[2023-09-24] MEDS ORDERED: ePHEDrine Sulfate 50 MG/10 ML VIAL ONE (12:21)
[2023-09-24] MEDS ORDERED: Bupivacaine 0.25% HCL 30 ML VIAL ONE (12:21)
[2023-09-24] MEDS ORDERED: EPINEPHrine 1 MG/ML VIAL ONE (12:21)
[2023-09-24] MEDS ORDERED: SUGAMMADEX SODIUM 200 MG/2 ML VIAL ONE (12:53)
[2023-09-24] MEDS ORDERED: Ondansetron PF 4 MG/2 ML Vial ONE (12:53)
== END 2023-09-24 16:20 | disposition home or self-care (01) ==
LOC: SDC 08:48
PROVIDERS: ATTEND Orthopaedic Surgery
PROC: 0LS40ZZ Reposition Left Upper Arm Tendon, Open Approach (ICD-10-PCS; principal; 2023-09-24)
PROC: 0LQ24ZZ Repair Left Shoulder Tendon, Percutaneous Endoscopic Approach (ICD-10-PCS; 2023-09-24)
DX: S43.432A Superior glenoid labrum lesion of left shoulder, initial encounter (principal); M24.012 Loose body in left shoulder; M75.112 Incomplete rotator cuff tear or rupture of left shoulder, not specified as traumatic; K21.9 Gastro-esophageal reflux disease without esophagitis; K57.30 Diverticulosis of large intestine without perforation or abscess without bleeding; Z88.5 Allergy status to narcotic agent; Z88.7 Allergy status to serum and vaccine; Z86.010 Personal history of colon polyps; Z90.710 Acquired absence of both cervix and uterus; Z98.890 Other specified postprocedural states; Z79.899 Other long term (current) drug therapy; X58.XXXA Exposure to other specified factors, initial encounter
CPT/HCPCS: 23430; 29827; A4306; C1713; J0171; J3010; J0665; J2250; J2405; J2704; J2795; J3490

== ENCOUNTER 2024-03-17 08:46 | Outpatient (CLI) | payer MEDICARE, BC ==
[2024-03-17] MEDS ORDERED: Iopamidol 370 76% 100 ML VIAL ONE (12:21)
== END 2024-03-17 08:47 | disposition home or self-care (01) ==
LOC: CT 08:46
PROVIDERS: ATTEND Internal Medicine Gastroenterology
DX: R10.9 Unspecified abdominal pain (principal); K56.609 Unspecified intestinal obstruction, unspecified as to partial versus complete obstruction; K76.89 Other specified diseases of liver; N28.89 Other specified disorders of kidney and ureter; K52.89 Other specified noninfective gastroenteritis and colitis; K63.89 Other specified diseases of intestine
CPT/HCPCS: 74177; Q9967

== ENCOUNTER 2025-04-25 09:44 | Outpatient (CLI) | payer MEDICARE, BC | END 2025-04-25 09:45 | disposition home or self-care (01) | LOC: BICMAMMO 09:44 | PROVIDERS: ATTEND Physician Assistant | DX: Z12.31 Encounter for screening mammogram for malignant neoplasm of breast (principal); Z80.3 Family history of malignant neoplasm of breast; Z91.89 Other specified personal risk factors, not elsewhere classified | CPT/HCPCS: 77063; 77067 ==